=== PATIENT | female | born 1940 | race Caucasian/White ===

== ENCOUNTER → 2017-03-29 | Outpatient (CLI) | payer OTHER | LOC: CIMAGING 14:45 | PROVIDERS: ATTEND Internal Medicine | DX: Z12.31 Encounter for screening mammogram for malignant neoplasm of breast (principal) | CPT/HCPCS: G0202 ==

== ENCOUNTER → 2017-04-25 | Outpatient (CLI) | payer OTHER | LOC: SBRMNEURO 21:00 | PROVIDERS: ATTEND Physician Assistant Medical | DX: G47.33 Obstructive sleep apnea (adult) (pediatric) (principal); G47.36 Sleep related hypoventilation in conditions classified elsewhere; G47.61 Periodic limb movement disorder ==

== ENCOUNTER 2017-05-29 15:35 | Emergency (ER) | payer OTHER ==
--- NOTE | 2017-05-29 15:53 | EDPHY ---
H & P Time Seen by Provider: 05/29/17 15:43 HPI/ROS: CHIEF COMPLAINT: Concussion HISTORY OF PRESENT ILLNESS: The patient is a 77-year-old female who does not take anticoagulants who comes to the ER concerned about a concussion. She states that yesterday she was getting into a car and bumped her back of her head on the door ledge. She did not lose consciousness. She had immediate pain that is gradually improved over the last 24 hr. She did not vomit. She did not have any seizure-like activity. She did not feel lightheaded or dizzy at that time. She states however that today she felt slightly foggy and not completely alert and slightly fuzzy. She called her primary care's office who recommended she come here to be evaluated for concussion. She did sleep very well last night. She does not have a headache. She does not feel dizzy. REVIEW OF SYSTEMS: Constitutional: denies: chills, fever, recent illness, recent injury EENTM: denies: blurred vision, double vision, nose congestion Respiratory: denies: cough, shortness of breath Cardiac: denies: chest pain, irregular heart rate, lightheadedness, palpitations Gastrointestinal/Abdominal: denies: abdominal pain, diarrhea, nausea, vomiting, blood streaked stools Genitourinary: denies: dysuria, frequency, hematuria, pain Musculoskeletal: denies: joint pain, muscle pain Skin: denies: lesions, rash, jaundice, bruising Neurological: See HPI denies: headache, numbness, paresthesia, tingling, dizziness, weakness Hematologic/Lymphatic: denies: blood clots, easy bleeding, easy bruising Immunologic/allergic: denies: HIV/AIDS, transplant EXAM: GENERAL: Well-appearing, well-nourished and in no acute distress. HEAD: Atraumatic, normocephalic. EYES: Pupils equal round and reactive to light, extraocular movements intact, sclera anicteric, conjunctiva are normal. ENT: TMs normal, nares patent, oropharynx clear without exudates. Moist mucous membranes. NECK: No midline tenderness, Normal range of motion, supple without lymphadenopathy or JVD. LUNGS: Breath sounds clear to auscultation bilaterally and equal. No wheezes rales or rhonchi. HEART: Regular rate and rhythm without murmurs, rubs or gallops. ABDOMEN: Soft, nontender, normoactive bowel sounds. No guarding, no rebound. No masses appreciated. BACK: No CVA tenderness, no spinal tenderness, step-offs or deformities EXTREMITIES: Normal range of motion, no pitting or edema. No clubbing or cyanosis. NEUROLOGICAL: Cranial nerves II through XII grossly intact. Normal speech, normal gait. 5/5 strength, normal movement in all extremities, normal sensation PSYCH: Normal mood, normal affect. SKIN: Warm, dry, normal turgor, no visible rashes or lesions. Source: Patient Exam Limitations: No limitations - Medical/Surgical History Hx Asthma: No Hx Chronic Respiratory Disease: No Hx Diabetes: No Hx Cardiac Disease: No Hx Renal Disease: No Hx Cirrhosis: No Hx Alcoholism: No Other PMH: Obstructive sleep apnea, arthritis - Family History Significant Family History: No pertinent family hx - Social History Smoking Status: Former smoker Alcohol Use: Sober Drug Use: None Constitutional: Initial Vital Signs Temperature (C) 36.5 C 05/29/17 15:40 Heart Rate 80 05/29/17 15:40 Respiratory Rate 16 05/29/17 15:40 Blood Pressure 127/68 H 05/29/17 15:40 O2 Sat (%) 92 05/29/17 15:40 O2 Delivery Mode Room Air Allergies/Adverse Reactions: No Known Allergies Allergy (Unverified 05/29/17 15:57) Home Medications: Medication Instructions Recorded Losartan Potassium 05/29/17 Luvox 100 MG (*) 05/29/17 Medical Decision Making - Diagnostics Imaging Results: Imaging Impressions Head CT 05/29/17 15:52 Impression: 1. Mild cerebral atrophy. 2. No epidural or subdural hematoma. 3. No skull fracture. 4. Cerebrovascular atherosclerosis. Findings and recommendations discussed with Emergency Department physician, Geovany Membreno at 1618 hour, 05/29/2017. Final report concurs with initial preliminary interpretation. Imaging: Discussed imaging studies w/ call center representative Radiologist ED Course/Re-evaluation: We discussed the patient's CT results. She is reassured. I gave her concussion precautions and she will follow up with her regular doctor in the next few days. Discussed indications for returning. Head CT ordered in this adult patient for trauma for the following indication: Age greater than 65 years old Differential Diagnosis: Partial list of the Differential diagnosis considered include but were not limited to; concussion, contusion and although unlikely based on the history and physical exam, I also considered fracture, intracranial injury, neck injury. I discussed these differential diagnoses and the plan with the patient as well as the usual and expected course. The patient understands that the diagnosis is provisional and that in medicine we are not always correct and that further workup is often warranted. Usual and customary warnings were given. All of the patient's questions were answered. The patient was instructed to return to the emergency department should the symptoms at all worsen or return, otherwise to followup with the physician as we discussed. Departure - Departure Disposition: Home, Routine, Self-Care Clinical Impression: Concussion Qualifiers: Encounter type: initial encounter Loss of consciousness presence/duration: without LOC Qualified Code(s): S06.0X0A - Concussion without loss of consciousness, initial encounter Condition: Fair Instructions: Concussion (ED) Referrals: Eden Smith MD [Primary Care Provider] - As per Instructions
[2017-05-29 15:57] VITALS: BP 127/68; PULSE 80; RESP 16; TEMP 97.7; O2SAT 92
== END 2017-05-29 16:46 | disposition home or self-care (01) ==
LOC: CED 15:35
DX: S06.0X0A Concussion without loss of consciousness, initial encounter (principal); Z87.891 Personal history of nicotine dependence; W22.8XXA Striking against or struck by other objects, initial encounter
CPT/HCPCS: 70450-PO

== ENCOUNTER 2017-11-28 17:35 | Observation (INO) | payer OTHER ==
[2017-11-28] MEDS ORDERED: NS 1,000 ML IV ONE (17:57)
--- NOTE | 2017-11-28 17:57 | EDPHY ---
H & P Stated Complaint: blood in stool/saw pcp/getting worse/lowwer abd discomfort Time Seen by Provider: 11/28/17 17:56 HPI/ROS: HPI CHIEF COMPLAINT: GI bleed HISTORY OF PRESENT ILLNESS: Patient is a very pleasant 77-year-old female she presents emergency room bright red blood per rectum some loose watery diarrhea with blood in it and darker maroon stools. She states she noticed this earlier today when she had a bowel movement she noticed a large amount of blood in the toilet. She made appointment with her primary care doctor was seen by her primary care doctor was told to go the emergency room if she has worsening bleeding. She went home after doctor's appointment had multiple bowel movements with blood. She denies any hematemesis. She denies black tarry stool. She describes the blood as darker stools but bright red blood. She also complains of lightheadedness when she goes stands. Denies chest pain or shortness of breath. Does have some lower abdominal discomfort. Patient states she is not on any anticoagulation. She reports she has been taking Aleve for her arthritic process. Otherwise denies being on any anticoagulation or blood thinners. Past Medical History: Obstructive sleep apnea, obesity Past Surgical History: Diverticulitis with colon resection, hernia repair, hysterectomy,, multiple orthopedic surgeries Social History: Denies drugs alcohol tobacco. Family History: Noncontributory ROS REVIEW OF SYSTEMS: A comprehensive 10 point review of systems is otherwise negative aside from elements mentioned in the history of present illness. Exam Constitutional nontoxic appearing, triage nursing summary reviewed, vital signs reviewed, awake/alert. Eyes normal conjunctivae and sclera, EOMI, PERRLA. HENT normal inspection, atraumatic, moist mucus membranes, no epistaxis, neck supple/ no meningismus, no raccoon eyes. Respiratory clear to auscultation bilaterally, normal breath sounds, no respiratory distress, no wheezing. Cardiovascular rate normal, regular rhythm, no murmur, no edema, distal pulses normal. Gastrointestinal soft, non-tender, no rebound, no guarding, normal bowel sounds, no distension, no pulsatile mass. Genitourinary no CVA tenderness. Musculoskeletal no midline vertebral tenderness, full range of motion, no calf swelling, no tenderness of extremities, no meningismus, good pulses, neurovascularly intact. Skin pink, warm, & dry, no rash, skin atraumatic. Neurologic awake, alert and oriented x 3, AAOx3, moves all 4 extremities equally, motor intact, sensory intact, CN II-XII intact, normal cerebellar, normal vision, normal speech. Psychiatric normal mood/affect. Heme/Lymph/Immune no lymphadenopathy. Differential diagnosis includes but is not limited to and in no particular order :, acute GI bleed, lower GI bleed, diverticular bleed, peptic ulcer disease Bowel obstruction, appendicitis, gallbladder disease, diverticulitis, colitis, enteritis, perforated viscus, gastritis, GERD, esophagitis, urinary tract infection, pyelonephritis, kidney stones Medical Decision Making: Plan for this patient type and screen, IV establishment with blood draw, check CBC, occult stool, CT scan abdomen pelvis with IV contrast, gentle IV hydration, and re-evaluate. Re-evaluation: 1930: Bright red blood on rectal exam. Patient hemodynamically stable. No acute distress. Will be admitted to the medicine service for GI bleed. Will consult GI. 1935: Spoke with the hospitalist service Dr. Ross, agrees to admit the patient for GI bleed. Additionally I will consult Gastroenterology. IV Protonix as been ordered. She is hemodynamically stable and safe for dinner floor admission at this time. Blood work reviewed H&H reviewed. 1947: Spoke with Dr. Morel, agrees with current treatment plan. Will plan on seeing the patient in consult. NPO. CT scan abdomen pelvis with IV contrast shows no evidence of acute inflammatory process. Shows extensive diverticulum. This Is most likely the cause of her GI bleed diverticulosis bleed. Source: Patient - Personal History Current Tetanus Diphtheria and Acellular Pertussis (TDAP): Unsure - Medical/Surgical History Hx Asthma: No Hx Chronic Respiratory Disease: No Hx Diabetes: No Hx Cardiac Disease: No Hx Renal Disease: No Hx Cirrhosis: No Hx Alcoholism: No Hx HIV/AIDS: No Hx Splenectomy or Spleen Trauma: No Other PMH: Obstructive sleep apnea, arthritis diverticulitis with perforation/ colon resection - Social History Smoking Status: Former smoker Constitutional: Initial Vital Signs Temperature (C) 36.8 C 11/28/17 17:39 Heart Rate 79 11/28/17 17:39 Respiratory Rate 18 11/28/17 17:39 Blood Pressure 119/47 L 11/28/17 17:39 O2 Sat (%) 97 11/28/17 17:39 O2 Delivery Mode Room Air Allergies/Adverse Reactions: No Known Allergies Allergy (Verified 11/28/17 17:39) Home Medications: Medication Instructions Recorded fluvoxaMINE MALEATE [Luvox 100 MG 150 mg PO BID 05/29/17 (*)] Herbals/Supplements -Info Only 1 ea PO DAILY 11/28/17 Multivitamins [Multivitamin (*)] 1 each PO DAILY 11/28/17 Vitamin B Complex [Vitamin B 1 each PO DAILY 11/28/17 Complex (OTC)] Acetaminophen [Tylenol 325mg (*)] 650 mg PO Q4HRS PRN tab 11/30/17 Pantoprazole Sodium [Protonix 40mg 40 mg PO DAILY #30 tab 11/30/17 (*)] Medical Decision Making - Data Points Laboratory Results: Laboratory Results 11/28/17 18:16 11/28/17 18:16 Medications Given: Discontinued Medications Fluvoxamine Maleate (Luvox) 150 mg PO BID DREW Stop: 05/27/18 20:59 Last Admin: 11/30/17 09:02 Dose: 150 mg Sodium Chloride (Ns) 1,000 mls @ 0 mls/hr IV EDNOW ONE; Wide Open PRN Reason: Protocol Stop: 11/28/17 17:58 Last Admin: 11/28/17 18:19 Dose: 1,000 mls Sodium Chloride (Ns) 1,000 mls @ 75 mls/hr IV CONT DREW Stop: 05/27/18 19:59 Last Admin: 11/28/17 22:45 Dose: 1,000 mls Lactated Ringer's (Lr) 1,000 mls @ 0 mls/hr IV ONCE ONE PRN Reason: KVO Stop: 11/29/17 15:01 Last Admin: 11/29/17 19:17 Dose: Not Given Pantoprazole Sodium (Protonix) 40 mg IVP EDNOW ONE Stop: 11/28/17 19:33 Last Admin: 11/28/17 19:43 Dose: 40 mg Pantoprazole Sodium (Protonix) 40 mg IVP Q6H DREW Stop: 05/27/18 20:44 Last Admin: 11/28/17 21:21 Dose: Not Given Pantoprazole Sodium (Protonix) 40 mg IVP Q6H DREW Stop: 05/28/18 01:59 Last Admin: 11/30/17 09:05 Dose: 40 mg Polyethylene Glycol/Electrolytes (Gavilyte - G) 4,000 ml PO ONCE ONE Stop: 11/29/17 05:46 Last Admin: 11/29/17 06:16 Dose: 4,000 ml Departure - Departure Disposition: [facility] Inpatient Acute Clinical Impression: GI bleed Qualifiers: GI bleed type/associated pathology: unspecified gastrointestinal hemorrhage type Qualified Code(s): K92.2 - Gastrointestinal hemorrhage, unspecified Condition: Good
[2017-11-28] MEDS ORDERED: IOPAMIDOL (ISOVUE-300) 100 ML BTL ONE ×2 (18:15→18:18)
[2017-11-28 18:35] LABS: PLATELET COUNT 169 10^3/uL (150-400)
[2017-11-28 18:59] LABS: INR 1.08 (0.83-1.16); PROTIME(PATIENT) 14.2 SEC (12.0-15.0)
[2017-11-28] MEDS ORDERED: PANTOPRAZOLE SODIUM 40 MG VIAL IVP ONE (19:32)
[2017-11-28] MEDS ORDERED: NS 1,000 ML IV SCH (20:00)
[2017-11-28] MEDS ORDERED: ACETAMINOPHEN 325 MG TAB PO PRN (20:00)
[2017-11-28] MEDS ORDERED: ONDANSETRON DISINTEGRATING 4 MG TAB PO PRN (20:00)
[2017-11-28] MEDS ORDERED: ONDANSETRON 4 MG/2 ML VIAL IVP PRN (20:00)
--- NOTE | 2017-11-28 20:44 | PDGENHP ---
History and Physical - Chief Complaint melena and red blood per rectum - History of Present Illness Patient is a very pleasant 77-year-old female who presents with multiple episodes of dark stools and bright red blood per rectum. She denies a hx of GIB. She takes Aleve daily for arthritis. She has a hx of diverticulitis and had a bowel resection in early . She does not have a hx of PUD. She denies constitutional sx's. She also complains of lightheadedness when she goes stands. Denies chest pain or shortness of breath. Does have some lower abdominal discomfort. Patient states she is not on any anticoagulation. Past Medical History: Obstructive sleep apnea, obesity Past Surgical History: Diverticulitis with colon resection, hernia repair, hysterectomy,, multiple orthopedic surgeries Social History: Denies drugs alcohol tobacco. Family History: Noncontributory Heme stools is positive CT scan abdomen pelvis with IV contrast shows no evidence of acute inflammatory process. Shows extensive diverticulum. History Information - Allergies/Home Medication List Allergies/Adverse Reactions: No Known Allergies Allergy (Verified 11/28/17 17:39) Home Medications: fluvoxaMINE MALEATE [Luvox 100 MG (*)] 150 mg PO BID 05/29/17 [Last Taken 15:00] Herbals/Supplements -Info Only 1 ea PO DAILY 11/28/17 [Last Taken 11/27/17] Losartan/Hctz 50/12.5 [Hyzaar 50/12.5MG (*)] 1 tab PO DAILY 11/28/17 [Last Taken 11/28/17 15:00] Multivitamins [Multivitamin (*)] 1 each PO DAILY 11/28/17 [Last Taken 11/28/17] [place]-3 Fatty Acids [Fish Oil 1000 mg (*)] 1,000 mg PO DAILY 11/28/17 [Last Taken 11/27/17] Vitamin B Complex [Vitamin B Complex (OTC)] 1 each PO DAILY 11/28/17 [Last Taken 11/27/17] I have personally reviewed and updated: medical history, social history - Social History Smoking Status: Former smoker Review of Systems Review of Systems: ROS: 10pt was reviewed & negative except for what was stated in HPI & below Physical Exam Physical Exam: Temp Pulse Resp BP Pulse Ox 36.9 C 74 18 103/51 L 98 06/20/18 20:02 11/28/17 20:02 11/28/17 20:02 11/28/17 20:02 11/28/17 20:02 Constitutional: no apparent distress Eyes: PERRL, anicteric sclera Ears, Nose, Mouth, Throat: moist mucous membranes, hearing normal Cardiovascular: regular rate and rhythym, No edema Respiratory: no respiratory distress, no rales or rhonchi, clear to auscultation Gastrointestinal: normoactive bowel sounds, soft, non-tender abdomen Skin: warm Musculoskeletal: full muscle strength Neurologic: AAOx3 Psychiatric: interacting appropriately, not anxious, not encephalopathic Lymph, Heme, Immunologic: petechiae Lab Data & Imaging Review 11/28/17 18:16 11/28/17 18:16 WBC 8.42 10^3/uL (3.80-9.50) 11/28/17 18:16 RBC 3.56 10^6/uL (4.18-5.33) L 11/28/17 18:16 Hgb 11.5 g/dL (12.6-16.3) L 11/28/17 18:16 Hct 33.8 % (38.0-47.0) L 11/28/17 18:16 MCV 94.9 fL (81.5-99.8) 11/28/17 18:16 MCH 32.9 pg (27.9-34.1) 11/28/17 18:16 MCHC 34.6 g/dL (32.4-36.7) 11/28/17 18:16 RDW 12.7 % (11.5-15.2) 11/28/17 18:16 Plt Count 169 10^3/uL (150-400) 11/28/17 18:16 MPV 10.0 fL (8.7-11.7) 11/28/17 18:16 Neut % (Auto) 70.3 % (39.3-74.2) 11/28/17 18:16 Lymph % (Auto) 16.9 % (15.0-45.0) 11/28/17 18:16 [place] % (Auto) 10.7 % (4.5-13.0) 11/28/17 18:16 Eos % (Auto) 1.2 % (0.6-7.6) 11/28/17 18:16 Baso % (Auto) 0.5 % (0.3-1.7) 11/28/17 18:16 Nucleat RBC Rel Count 0.0 % (0.0-0.2) 11/28/17 18:16 Absolute Neuts (auto) 5.93 10^3/uL (1.70-6.50) 11/28/17 18:16 Absolute Lymphs (auto) 1.42 10^3/uL (1.00-3.00) 11/28/17 18:16 Absolute Monos (auto) 0.90 10^3/uL (0.30-0.80) H 11/28/17 18:16 Absolute Eos (auto) 0.10 10^3/uL (0.03-0.40) 11/28/17 18:16 Absolute Basos (auto) 0.04 10^3/uL (0.02-0.10) 11/28/17 18:16 Absolute Nucleated RBC 0.00 10^3/uL (0-0.01) 11/28/17 18:16 Immature Gran % 0.4 % (0.0-1.1) 11/28/17 18:16 Immature Gran # 0.03 10^3/uL (0.00-0.10) 11/28/17 18:16 PT 14.2 SEC (12.0-15.0) 11/28/17 18:16 INR 1.08 (0.83-1.16) 11/28/17 18:16 APTT 32.6 SEC (23.0-38.0) 11/28/17 18:16 VBG Lactic Acid 1.3 mmol/L (0.7-2.1) 11/28/17 18:16 Sodium 138 mEq/L (135-145) 11/28/17 18:16 Potassium 4.1 mEq/L (3.3-5.0) 11/28/17 18:16 Chloride 104 mEq/L (97-110) 11/28/17 18:16 Carbon Dioxide 25 mEq/l (22-31) 11/28/17 18:16 Anion Gap 9 mEq/L (8-16) 11/28/17 18:16 BUN 39 mg/dL (7-23) H 11/28/17 18:16 Creatinine 1.1 mg/dL (0.6-1.0) H 11/28/17 18:16 Estimated GFR 48 18 18:16 Glucose 92 mg/dL (70-100) 18 18:16 Calcium 9.0 mg/dL (8.5-10.4) 11/28/17 18:16 Total Bilirubin 0.6 mg/dL (0.1-1.4) 11/28/17 18:16 Conjugated Bilirubin 0.4 mg/dL (0.0-0.5) 11/28/17 18:16 Unconjugated Bilirubin 0.2 mg/dL (0.0-1.1) 11/28/17 18:16 AST 27 IU/L (14-46) 11/28/17 18:16 ALT 31 IU/L (9-52) 11/28/17 18:16 Alkaline Phosphatase 75 IU/L (38-126) 11/28/17 18:16 Total Protein 6.1 g/dL (6.3-8.2) L 11/28/17 18:16 Albumin 3.5 g/dL (3.5-5.0) 11/28/17 18:16 Lipase 83 IU/L (23-300) 11/28/17 18:16 Stool Occult Bld Scrn POSITIVE (NEGATIVE) H 11/28/17 19:20 Patient ABO/Rh O POSITIVE 11/28/17 18:16 Antibody Screen NEGATIVE 11/28/17 18:16 Assessment & Plan Assessment: Acute GI Bleed with Melena and bright red blood per rectum -Most likely LGIB given CT findings but given her hx of Melena and Aleve daily, cannot r/o UGIB -will treat with PPI -NPO at midnight -GI to see tomorrow ABLA -serial H/H -transfuse PRN -no indication for transfusion currently -BP stable, no tachycardia -will provide IVF OLE -baseline Cr is normal -recheck in a.m. after hydration Full code
[2017-11-28] MEDS ORDERED: PANTOPRAZOLE SODIUM 40 MG VIAL IVP SCH (20:45)
[2017-11-29] MEDS: PANTOPRAZOLE SODIUM 40 MG VIAL IVP SCH ×4 (02:06→20:59)
[2017-11-29 04:33] LABS: PLATELET COUNT 125 10^3/uL (150-400)
[2017-11-29] MEDS ORDERED: PEG 3350/NA SULF,BICARB,CL/KCL (GAVILYTE-G) 4000 ML BTL PO ONE (05:45)
--- NOTE | 2017-11-29 05:46 | SOAPPROG ---
SOAP Progress Note Assessment/Plan: Assessment: Plan: 11/29/17 05:46 GI note See dictated consult for details. Will start prep. E/C later today. Needs to be done with prep by around 1pm. Objective: Vital Signs Temp Pulse Resp BP Pulse Ox 36.7 C 64 16 115/54 L 98 11/29/17 02:55 11/29/17 02:55 11/29/17 02:55 11/29/17 02:55 11/29/17 02:55 Laboratory Results 11/29/17 04:15 11/29/17 04:15 11/27/17 11/28/17 11/29/17 05:59 05:59 05:59 Intake Total 1000 Balance 1000 PT 14.2 SEC (12.0-15.0) 11/28/17 18:16 INR 1.08 (0.83-1.16) 11/28/17 18:16 ICD10 Worksheet Patient Problems: Problems Problem Status Onset GI bleed Acute
--- NOTE | 2017-11-29 06:12 | GCON ---
[f rep st] CONSULTATION DATE OF CONSULTATION: 11/29/2017 REFERRING PHYSICIAN: Gato Ross MD REASON FOR CONSULTATION: Hematochezia. HISTORY OF PRESENT ILLNESS: The patient is a 77-year-old female with a history of NSAID use, extensive diverticulosis, who presents to [facility] with complaints of bright red blood per rectum. The patient states she has been under a lot of stresses lately, but was doing well until yesterday morning when she had a bowel movement which she thought was bright red blood. She said her bowel movement slid out and she looked in the toilet bowl and thought it was bright red blood on the surface and may have had some darker components. Since then, she has had at least 3-4 bowel movements that have been darker/with possible bright red blood. The patient does take aspirin on a daily basis for her arthritis. She denies any abdominal pain, nausea, vomiting , dysphagia or odynophagia. The patient did have a sigmoid resection multiple years ago. Her last colonoscopy was on 03/11/2015, by my partner, Dr. Kaur, where she was found to have arenas diverticulosis as well as an angioectasia. I am being asked to evaluate Camila by Dr. Ross regarding her GI bleed. PAST MEDICAL HISTORY: 1. Obesity. 2. Obstructive apnea. 3. Arthritis. 4. Hypertension. PAST SURGICAL HISTORY: 1. Sigmoid resection. 2. Hernia. 3. Hysterectomy. 4. Orthopedic surgeries. ALLERGIES: NKDA. MEDICATIONS: 1. Aleve. 2. Fluvoxamine. 3. Losartan/hydrochlorothiazide. 4. Multivitamins. FAMILY HISTORY: Positive family history of polyps. SOCIAL HISTORY: Former smoker. No significant tobacco use. REVIEW OF SYSTEMS: A 14-point comprehensive review of systems was asked. Pertinent positives and negatives per HPI. PHYSICAL EXAM: VITAL SIGNS: Blood pressure 115/54, pulse 64, respirations 16, temperature 36.7. HEENT: Anicteric, moist mucosa. NECK: No JVD. CARDIOVASCULAR: Regular rate and rhythm. Positive S1, S2. No murmurs or gallops appreciated. LUNGS: Clear to auscultation bilaterally. No wheezes, rales or rhonchi. ABDOMEN: Obese, soft, nontender, nondistended. Positive bowel sounds. No guarding. No rebound. EXTREMITIES: No clubbing, cyanosis or edema. NEUROLOGIC: 2 through 12 grossly intact. PSYCH: Normal affect. MUSCULOSKELETAL: No obvious joint effusions. LYMPH: No lymphadenopathy. BLOOD WORK: WBC 6.21, hemoglobin 9.8, hematocrit 29.9, platelets 125. INR 1.08. Sodium 142, potassium 3.7, chloride 111, bicarb 24, BUN 32, creatinine 0.9. AST 27, ALT 31. ASSESSMENT AND PLAN: 1. Blood in the stools-on significant non-steroidal anti-inflammatory drugs use. Does have arenas diverticulosis. Etiology? Unsure of bleed, but suspect lower. However, due to the aspirin you still have to consider about an upper bleed. Peptic ulcer disease versus diverticular bleed versus other? At this time, recommend to proceed with upper endoscopy and colonoscopy to delineate the cause of her symptoms. The risks, benefits, and alternatives of the procedure were discussed in great detail with the patient. The risks of infection, bleeding, perforation, and sedation were discussed. Due to her obstructive sleep apnea, she is at increased risk of sedation and will consult Anesthesiology for support. 2. Obstructive sleep apnea. 3. Hypertension. Thank you very much for this consultation. /[id number]/MODL MTDD
--- NOTE | 2017-11-29 09:22 | HOSPPROG ---
Hospitalist Progress Note Assessment/Plan: # GIB - unclear if upper or lower per hx - plan EGD and colonoscopy today - cont protonix pending endoscopic findings - hold aleve # ABLA - d/t above - cont to trend # OLE - resolved Subjective: drinnking prep; BRBPR per RN Objective: Vital Signs Temp Pulse Resp BP Pulse Ox 36.4 C 61 17 106/59 L 94 11/29/17 08:00 11/29/17 08:00 11/29/17 08:00 11/29/17 08:00 11/29/17 08:00 Laboratory Results 11/29/17 04:15 11/29/17 04:15 11/28/17 11/29/17 11/30/17 05:59 05:59 05:59 Intake Total 1000 Balance 1000 PT 14.2 SEC (12.0-15.0) 11/28/17 18:16 INR 1.08 (0.83-1.16) 11/28/17 18:[address] reviewed - Physical Exam Constitutional: no apparent distress, appears nourished Cardiovascular: regular rate and rhythym, no murmur, rub, or gallop Respiratory: no respiratory distress, no rales or rhonchi, clear to auscultation Gastrointestinal: normoactive bowel sounds, soft, non-tender abdomen, no palpable masses ICD10 Worksheet Patient Problems: Problems Problem Status Onset GI bleed Acute
--- NOTE | 2017-11-29 10:13 | ASMTCMCOM ---
CM Note CM Note Notes: Chart reviewed. Patient admitted via ED for c/o bloody stool associated with dizziness when standing. She is admitted with diagnosis of GI bleed. For endoscopy today. DC plan TBD Plan: TBD Date Signed: 11/29/2017 10:12 AM Electronically Signed By:Rachel Albrecht RN
[2017-11-29] MEDS ORDERED: LR 1,000 ML IV ONE (15:00)
--- NOTE | 2017-11-29 15:38 | PDANEPAE ---
ANE History of Present Illness 77 yo for egd/colon ANE Past Medical History - Cardiovascular History Hx Hypertension: No Hx Arrhythmias: No Hx Chest Pain: No Hx Coronary Artery / Peripheral Vascular Disease: No Hx CHF / Valvular Disease: No Hx Palpitations: No - Pulmonary History Hx Oxygen in Use at Home: Yes O2 in Use at Home (L/minute): 3 Hx Sleep Apnea: Yes Sleep Apnea Screening Result - Last Documented: Positive - Endocrine History Hx Diabetes: No ANE Review of Systems Review of Systems: - Exercise capacity METS (RN): 3 METS ANE Patient History - Allergies Allergies/Adverse Reactions: No Known Allergies Allergy (Verified 11/28/17 17:39) - Home Medications Home Medications: fluvoxaMINE MALEATE [Luvox 100 MG (*)] 150 mg PO BID 05/29/17 [Last Taken 15:00] Herbals/Supplements -Info Only 1 ea PO DAILY 11/28/17 [Last Taken 11/27/17] Losartan/Hctz 50/12.5 [Hyzaar 50/12.5MG (*)] 1 tab PO DAILY 11/28/17 [Last Taken 11/28/17 15:00] Multivitamins [Multivitamin (*)] 1 each PO DAILY 11/28/17 [Last Taken 11/28/17] [place]-3 Fatty Acids [Fish Oil 1000 mg (*)] 1,000 mg PO DAILY 11/28/17 [Last Taken 11/27/17] Vitamin B Complex [Vitamin B Complex (OTC)] 1 each PO DAILY 11/28/17 [Last Taken 11/27/17] - NPO status NPO Status: no food or drink >8 hours NPO Since - Liquids (Date): 11/29/17 NPO Since - Liquids (Time): 00:00 NPO Since - Solids (Date): 11/29/17 NPO Since - Solids (Time): 00:00 - Smoking Hx Smoking Status: Former smoker ANE Labs/Vital Signs - Labs Result Diagrams: 11/29/17 13:30 11/29/17 04:15 - Vital Signs Blood Pressure: 124/54 Heart Rate: 59 Respiratory Rate: 16 O2 Sat (%): 92 Height: 5 ft 2 in Weight: 96.162 kg ANE Physical Exam - Airway Neck exam: FROM Mouth exam: normal dental/mouth exam - Pulmonary Pulmonary: no respiratory distress - Cardiovascular Cardiovascular: regular rate and rhythym - ASA Status ASA Status: II ANE Anesthesia Plan Anesthesia Plan: GA with mask
[2017-11-29] MEDS ORDERED: PROPOFOL/EMULSION 500 MG/50 ML BOTTLE IV ONE (15:56)
--- NOTE | 2017-11-29 16:50 | GIREPORT ---
[facility] Surgical Services - Endoscopy Department Patient Name: Camila Myers Procedure Date: 11/29/2017 3:27 PM Patient Type: Inpatient Attending MD/ ER Physician: Tim Morel MD Procedure: Colonoscopy Indications: Hematochezia, Acute post hemorrhagic anemia Patient Profile: 77 year old female presents for evaluation of hematochezia/post hemorrh agic anemia. Providers: Tim Morel MD Medicines: Monitored Anesthesia Care Complications: No immediate complications. Estimated blood loss: None. Description of Procedure: After obtaining informed consent, the scope was passed under direct vis ion. Throughout the procedure, the patient's blood pressure, pulse, and oxyg en saturations were monitored continuously. The Colonoscope with irrigatio n channel was introduced through the anus and advanced to the terminal il eum. The colonoscopy was performed without difficulty. The patient tolerated the procedure well. The quality of the bowel preparation was good. The term inal ileum, ileocecal valve, appendiceal orifice, and rectum were photograph ed. Findings: The perianal and digital rectal examinations were normal. Pertinent negatives include no palpable rectal lesions. Multiple small and large-mouthed diverticula were found in the descendi ng colon, transverse colon and ascending colon. The terminal ileum appeared normal. Estimated Blood Loss: Estimated blood loss: none. Post Op Diagnosis: - Diverticulosis in the descending colon, in the transverse colon and i n the ascending colon. - The examined portion of the ileum was normal. - No specimens collected. - Etiology? No blood seen during examination. Diverticular versus other ? Will start diet. If rebleeds, recommend bleeding scan. Can consider cap maria r endoscopy as outpatient. Recommendation: - Return patient to hospital little for ongoing care. - Resume previous diet. - Continue present medications. - Repeat colonoscopy is not recommended for surveillance. - Use fiber, for example Citrucel, Fibercon, Konsyl or Metamucil. - Consider bleeding scan/IR evaluation if any signs of rebleed. - Avoid NSAIDs if possible. - Thank you for allowing me to participate in the care of your patient. Attending Participation: I personally performed the entire procedure. Tim Morel MD Tim Morel MD 11/29/2017 4:49:26 PM This report has been signed electronicallyTim Morel MD Number of Addenda: 0 Note Initiated On: 11/29/2017 3:27 PM Total Procedure Duration Time 0 hours 15 minutes 47 seconds [email or web address]
--- NOTE | 2017-11-29 16:52 | GIREPORT ---
[facility] Surgical Services - Endoscopy Department Patient Name: Camila Myers Procedure Date: 11/29/2017 4:19 PM Patient Type: Inpatient Attending MD/ ER Physician: Tim Morel MD Procedure: Upper GI endoscopy Indications: Melena Patient Profile: 77 year old female presents for evaluation of a GI bleed. Providers: Tim Morel MD Medicines: Monitored Anesthesia Care Complications: No immediate complications. Estimated blood loss: Minimal. Description of Procedure: After obtaining informed consent, the endoscope was passed under direct vision. Throughout the procedure, the patient's blood pressure, pulse, and oxygen saturations were monitored continuously. The Endoscope was intro duced through the mouth, and advanced to the second part of duodenum. The [facility] er GI endoscopy was accomplished without difficulty. The patient tolerated th e procedure well. Findings: The examined esophagus was normal. A large hiatal hernia was present. Patchy moderately erythematous mucosa was found in the entire examined stomach. Biopsies were taken with a cold forceps for histology. The examined duodenum was normal. Estimated Blood Loss: Estimated blood loss was minimal. Post Op Diagnosis: - Normal esophagus. - Large hiatal hernia. - Erythematous mucosa in the stomach. Biopsied. - Normal examined duodenum. - No blood or source of bleeding noted. Recommendation: - Perform a colonoscopy today. - Await pathology results. - More recommendations on colonoscopy report. - Thank you for allowing me to participate in the care of your patient. Attending Participation: I personally performed the entire procedure. Tim Morel MD Tim Morel MD 11/29/2017 4:52:15 PM This report has been signed electronicallyTim Morel MD Number of Addenda: 0 Note Initiated On: 11/29/2017 4:19 PM [email or web address]
--- NOTE | 2017-11-29 17:19 | POSTANESTH ---
Post Anesthetic Evaluation Cardiovascular Status: Normal, Stable Respiratory Status: Normal, Stable Level of Consciousness/Mental Status: Can Participate in Eval Pain Control: Adequate, Prn Tx Ordered Nausea/Vomiting Control: Adequate, Prn Tx Ordered Complications Possibly Related to Anesthesia: None Noted
[2017-11-30] MEDS: PANTOPRAZOLE SODIUM 40 MG VIAL IVP SCH ×2 (02:17→09:05)
[2017-11-30 08:34] VITALS: BP 97/65
--- NOTE | 2017-11-30 13:54 | ASMTLACE ---
TENZIN Length of stay for Answers: 1 day current admission Comorbidities - select Answers: Other Notes: diverticulitis all that apply # of Emergency department Answers: 1-2 visits in the last 6 months Score: 3 Date Signed: 11/30/2017 01:53 PM Electronically Signed By:Rachel Albrecht RN
--- NOTE | 2017-11-30 13:55 | ASMTCMCOM ---
CM Note CM Note Notes: Chart reviewed Patient medically cleared for discharge to home. No needs identified at this time. Plan: Home independently with family support. Date Signed: 11/30/2017 01:54 PM Electronically Signed By:Rachel Albrecht RN
--- NOTE | 2017-11-30 18:28 | GDS ---
[f rep st] DISCHARGE SUMMARY PRIMARY CARE PROVIDER: Lana Lay MD. IN-HOSPITAL CONSULTANTS: Tim Morel MD, Gastroenterology. DISCHARGE DIAGNOSIS: Gastrointestinal hemorrhage. HISTORY OF PRESENT ILLNESS: The patient is a pleasant 77-year-old female with a past medical history of hypertension and obstructive sleep apnea, who presented to the [facility] Emergen [facility] Room after developing bloody stools. She subsequently underwent a colonoscopy and endoscopy which did not reveal any source of the bleeding. There was some clinical suspicion for a diverticular ble ed as she did have evidence of diverticulosis. Fortunately, her blood counts remained relatively sta ble. She did have a slight decrease in her hemoglobin to 9 and 10 after her initial hemoglobin of 11 . She did not have any continued bleeding after her evaluation, and it was felt that she was stable for discharge home. She was anxious to get home as she lives independently with her , who has some degree of dementia. We had a long discussion on medications, both prescription and over-the-co unter medications. I did encourage her to stop taking Aleve as this could play a role with the bleed ing. I also discussed holding fish oil supplementation. She was agreeable to these recommendations. We did also discuss using Protonix for the next 1 month, and then stopping as she did have some mil d erythema noted in the gastric wall and she has been taking NSAIDs on a regular basis. We also had a discussion on holding her losartan hydrochlorothiazide which she takes for hypertension as her bloo d pressures were low normal during the hospitalization. HOSPITAL COURSE: Problems: 1. GI bleed, uncertain source, but there is some clinical suspicion for possible diverticular bleed. I think we can continue to follow her and if she has any recurrent bleeding, then a followup visit with Dr. Morel would be recommended to consider a capsule endoscopy. Otherwise, continue with Protoni x for the next 1 month and continue to hold Aleve. 2. Acute blood loss anemia. Hemoglobin at the time of discharge was 9 which was relatively stable a s comparison to her prior checks. 3. Hypertension. I recommend holding losartan hydrochlorothiazide at this point in time until instr ucted to resume by her primary doctor. 4. Obstructive sleep apnea. Patient was using CPAP here in the hospital. 5. DVT prophylaxis. Compression devices. No heparin or Lovenox in light of bleeding. DISPOSITION: She appears stable for discharge home today. PHYSICAL EXAM: VITAL SIGNS: On day of discharge, temperature 36.6, blood pressure 97/65, heart rate 68, respirations 12, saturating 98%. GENERAL: Patient appears comfortable. She is awake, alert, c onversant, no acute distress. HEART: Regular, no murmurs appreciated. LUNGS: Clear to auscultatio n with normal respiratory effort. ABDOMEN: Soft, nontender, no tenderness at the epigastrium. Norm al bowel sounds. : No Patterson catheter in place. EXTREMITIES: No significant pitting edema. LABORATORY DATA: Notable studies: Hemoglobins throughout her hospitalization were 11.8 to 11.7 to 1 1.5 to 9.8 to 10.5 to 9.7. Endoscopy and colonoscopy did not reveal a definite source of bleeding. DISCHARGE MEDICATIONS: 1. Protonix 40 mg daily for 1 month and then stop. 2. Luvox 150 mg twice a day. 3. Patient was instructed to hold her losartan hydrochlorothiazide, as well as Aleve. DISCHARGE INSTRUCTIONS: I have recommended followup visit with her primary provider in 1 week's time to reassess her blood pressure and determine if she needs to restart her losartan or hydrochlorothia zide. Otherwise, if she rebleeds I recommended returning to the emergency room for reassessment. Time Spent: 35 minutes of time was dedicated to discharge effort. /[id number]/MODL
--- NOTE | 2017-11-30 21:35 | SOAPPROG ---
SOAP Progress Note Assessment/Plan: Assessment: Plan: 11/29/17 05:46 GI note See dictated consult for details. Will start prep. E/C later today. Needs to be done with prep by around 1pm. 11/30/17 06:32 A/P 1. GI bleed- No cause seen on EGD and colonoscopy. + diverticulosis. Suspect diverticular bleed due to history? No signs of active GI bleeding at this time. Recommend to hold ASA. Also recommend capsule endoscopy as outpatient. GI will sign off. Thank you for the consultation. Subjective: cc: Follow up GI bleed No complaints. No recent BM Objective: Vital Signs Temp Pulse Resp BP Pulse Ox 36.6 C 68 12 97/65 L 98 11/30/17 08:00 11/30/17 08:00 11/30/17 08:00 11/30/17 08:00 11/30/17 08:00 Laboratory Results 11/30/17 04:50 11/29/17 04:15 11/29/17 11/30/17 12/01/17 05:59 05:59 05:59 Intake Total 1000 720 Balance 1000 720 PT 14.2 SEC (12.0-15.0) 11/28/17 18:16 INR 1.08 (0.83-1.16) 11/28/17 18:16 Physical Exam - Physical Exam General Appearance: alert, no apparent distress EENT: No scleral icterus (R), No scleral icterus (L) Respiratory: chest non-tender, lungs clear, normal breath sounds, No crackles, No rales, No rhonchi Cardiac/Chest: regular rate, rhythm Abdomen: normal bowel sounds, non-tender, soft, No guarding, No rebound Skin: normal color, warm/dry Neuro/Psych: alert, normal mood/affect, oriented x 3 ICD10 Worksheet Patient Problems: Problems Problem Status Onset GI bleed Acute
[2017-12-01] MEDS ORDERED: PANTOPRAZOLE SODIUM 40 MG TAB PO SCH (09:00)
== END 2017-11-30 14:35 | disposition home or self-care (01) ==
LOC: F3E 20:19
PROVIDERS: ADMIT Family Medicine; ATTEND Internal Medicine
PROC: 0DJD8ZZ Inspection of Lower Intestinal Tract, Via Natural or Artificial Opening Endoscopic (ICD-10-PCS; principal; 2017-11-28)
PROC: 0DB68ZX Excision of Stomach, Via Natural or Artificial Opening Endoscopic, Diagnostic (ICD-10-PCS; principal; 2017-11-28)
DX: K57.91 Diverticulosis of intestine, part unspecified, without perforation or abscess with bleeding (principal); I10 Essential (primary) hypertension; G47.33 Obstructive sleep apnea (adult) (pediatric); D62 Acute posthemorrhagic anemia
CPT/HCPCS: 43239; 45378; 74177; 96361; 96374; 99285; G0378; J2704; Q9967

== ENCOUNTER 2017-12-01 18:18 | Emergency (ER) | payer OTHER ==
--- NOTE | 2017-12-01 18:25 | EDPHY ---
H & P Stated Complaint: D/C'd yesterday post GI bleed; small stool today w/slight amt blood Time Seen by Provider: 12/01/17 18:24 - Personal History Current Tetanus Diphtheria and Acellular Pertussis (TDAP): Yes - Medical/Surgical History Hx Asthma: No Hx Chronic Respiratory Disease: No Hx Diabetes: No Hx Cardiac Disease: No Hx Renal Disease: No Hx Cirrhosis: No Hx Alcoholism: No Hx HIV/AIDS: No Hx Splenectomy or Spleen Trauma: No Other PMH: Obstructive sleep apnea, arthritis diverticulitis with perforation/ colon resection - Social History Smoking Status: Former smoker Constitutional: Initial Vital Signs Temperature (C) 37.4 C 12/01/17 18:19 Heart Rate 82 12/01/17 18:19 Respiratory Rate 18 12/01/17 18:19 Blood Pressure 147/68 H 12/01/17 18:19 O2 Sat (%) 95 12/01/17 18:19 O2 Delivery Mode Room Air Allergies/Adverse Reactions: No Known Allergies Allergy (Verified 12/01/17 18:19) Home Medications: Medication Instructions Recorded fluvoxaMINE MALEATE [Luvox 100 MG 150 mg PO BID 05/29/17 (*)] Herbals/Supplements -Info Only 1 ea PO DAILY 11/28/17 Multivitamins [Multivitamin (*)] 1 each PO DAILY 11/28/17 Vitamin B Complex [Vitamin B 1 each PO DAILY 11/28/17 Complex (OTC)] Acetaminophen [Tylenol 325mg (*)] 650 mg PO Q4HRS PRN tab 11/30/17 Pantoprazole Sodium [Protonix 40mg 40 mg PO DAILY #30 tab 11/30/17 (*)] Medical Decision Making ED Course/Re-evaluation: CHIEF COMPLAINT: Blood in stool HISTORY OF PRESENT ILLNESS: The patient is a 77 y/o female with a history of diverticulitis, diverticulosis, and colon resection complaining of blood in her stool. On Sunday morning, she had a large, dark bowel movement with lots of bright red blood in the toilet. She went to her primary care provider who believed it may be a bleeding ulcer and directed her to the ED if she continued to have bloody stools. Later in the day on Sunday, she had three episodes of bloody diarrhea. She was admitted to the hospital. An upper endoscopy and a colonoscopy were inconclusive. She was discharged yesterday and directed to return if she continued to have bloody stool. This afternoon, around 3:00PM, 4 hours ago, she had a small bowel movement and thought she had a small amount of blood in the stool and on the toilet paper. She took Protonix at 4:30 PM, as directed when she was discharged and presented to the ED as directed at discharge. She denies abdominal pain, nausea, or any other associated symptoms. REVIEW OF SYSTEMS: A 10 point review of systems was performed and is negative with the exception of the elements mentioned in the history of present illness. PHYSICAL EXAM: HR, BP, O2 Sat, RR. Temp noted General Appearance: Alert, well hydrated, appropriate, and non-toxic appearing. Head: Atraumatic without scalp tenderness or obvious injury Eyes: Pupils equal, round, reactive to light and accommodation, EOMI, no trauma , no injection. Ears: Clear bilaterally, no perforation, normal landmarks Nose: Atraumatic, no rhinorrhea, clear. Throat: There is no erythema or exudates, no lesions, normal tonsils, mucus membranes moist. Neck: Supple, nontender, no lymphadenopathy. Respiratory: No retractions, no distress, no wheezes, and no accessory muscle use. Cardiovascular: Regular rate and rhythm, no murmurs, rubs, or gallops. Gastrointestinal: Abdomen is soft, nontender, non-distended, no masses, no rebound, no guarding, no peritoneal signs. Musculoskeletal: Normal active ROM of all extremities, atraumatic. Neurological: Alert, appropriate, and interactive. Skin: No rashes, good turgor, no nodules on palpation. Past medical history: Diverticulitis, diverticulosis Past surgical history: Colon resection Family history: Non-contributory Social history: Lives in [place], , retired DIFFERENTIAL DIAGNOSIS: The differential diagnosis for this patient's symptoms included but was not limited to GI bleed, diverticulosis, and diverticulitis. MEDICAL DECISION MAKING: The patient presents with blood in her stool. She was discharged yesterday with a GI bleed, although with an upper and lower endoscopy that did not identify a clear source. She reports the blood was only a minimal amount and denies any other associated symptoms. Plan for iSTAT to evaluate hemoglobin and hematocrit. 8:00 PM- The patient's hemoglobin and hematocrit were not concerning. I feel since she has a small amount of bleeding and has already been scoped she can safely return home. She agrees to this course of action. Departure - Departure Disposition: Home, Routine, Self-Care Clinical Impression: Lower GI bleed Condition: Good Instructions: Gastrointestinal Bleeding (ED) Additional Instructions: 1. Follow the instructions provided to you when you were discharged from the hospital. Continue to take your Protonix as directed. 2. Follow up with your liability claims adjuster as directed when you were discharged from the hospital. 3. Return to the emergency department for worsening of condition. Referrals: Eden Smith MD [Primary Care Provider] - As per Instructions Tim Morel MD [Medical Doctor] - As per Instructions Report Scribed for: Joselito Chu Report Scribed by: Kaitlyn Fall Date of Report: 12/01/17 Time of Report: 20:06
[2017-12-01 20:17] VITALS: BP 129/79
== END 2017-12-01 20:17 | disposition home or self-care (01) ==
DX: K92.2 Gastrointestinal hemorrhage, unspecified (principal); Z87.891 Personal history of nicotine dependence

== ENCOUNTER 2018-02-12 16:08 | Emergency (ER) | payer OTHER ==
[2018-02-12 16:32] VITALS: BP 117/81
[2018-02-12] MEDS ORDERED: ACETAMINOPHEN 325 MG TAB PO ONE (16:49)
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
== END 2018-02-12 17:10 | disposition home or self-care (01) ==
LOC: CED 16:08
DX: S06.0X0A Concussion without loss of consciousness, initial encounter (principal); W22.09XA Striking against other stationary object, initial encounter; Y93.E1 Activity, personal bathing and showering; Y92.012 Bathroom of single-family (private) house as the place of occurrence of the external cause; Y99.8 Other external cause status; R40.2412 Glasgow coma scale score 13-15, at arrival to emergency department

== ENCOUNTER → 2018-04-03 | Outpatient (CLI) | payer OTHER | LOC: CIMAGING 14:07 | PROVIDERS: ATTEND Internal Medicine | DX: Z12.31 Encounter for screening mammogram for malignant neoplasm of breast (principal) ==

== ENCOUNTER → 2018-12-03 | Outpatient (CLI) | payer OTHER | LOC: EMCIMAGING 09:27 ==